=== PATIENT | female | born 1980 | race African-American/Black ===

== ENCOUNTER 2024-11-28 03:27 | Emergency (ER) | payer OTHER ==
[~2024-11-28] VITALS: Ht 154.9 cm; Wt 71.6 kg
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
[2024-11-28 05:02] VITALS: BP 132/84; PULSE 78; RESP 18; TEMP 98.6; O2SAT 99
== END 2024-11-28 05:03 | disposition home or self-care (01) ==
LOC: ER 03:29 → EEVIPCON 03:29 → ER 05:03
DX: Z00.00 Encounter for general adult medical examination without abnormal findings (principal)
CPT/HCPCS: 99283

== ENCOUNTER 2024-12-09 22:14 | Emergency (ER) | payer OTHER ==
[~2024-12-09] VITALS: Ht 152.4 cm; Wt 58.0 kg
[2024-12-09] MEDS ORDERED: SULF1TAB49 PO (23:37)
--- NOTE | 2024-12-09 23:37 | Physician Documentation ---
History of Present Illness ~ Chief Complaint: Wound Stated Complaint: LEG SORES Time Seen by MD: 23:28 HPI Patient presents secondary to wounds on her legs. She fell asleep quickly after being placed in a room and is not able to provide much history. When asked if she has had fevers or chills she shakes her head. When asked when the wound started she would not answer. Tetanus within 5 years?: No Medication Reconciliation Allergies: Coded Allergies: No Known Allergies (Unverified , 12/09/24) Scheduled Sulfamethoxazole/Trimethoprim (Bactrim Ds Tablet), 1 TAB PO Q12H Review of Systems ROS Review of systems negative except documented in HPI. Physical Exam Vital Signs: RN Vital Signs have been reviewed: Yes, Temperature: 97.6, Source: Temporal, Heart Rate: 99, Respiratory Rate: 15, BP: 112/56, Pulse Oximetry: 99, Weight: 58.000 Pulse Oximetry Reflects: adequate oxygenation Physical Exam General: Falling asleep easily. Difficult to arouse. No apparent distress. Respiratory: Lungs are clear to auscultation bilaterally. No respiratory distress. Extremities: Wounds to the bilateral legs. No surrounding erythema. Neurologic: Alert and oriented x4. Nonfocal Skin: Normal color. Warm and dry. Progress Results/Orders Results/Orders Completed Orders - MARIA ELENA LONG NP Sulfamethox/Trimetho. Ds Tab ( Ds (12/09/24 23:40) Medications Received in ER Medications (Trade) Dose Ordered Sig/Lizy Route PRN Reason Start Time Stop Time Status Last Admin Dose Admin ( DS tab) 1 tab ONCE ONCE PO 12/09/24 23:40 12/09/24 23:41 DC 12/09/24 23:45 1 TAB Vital Signs 12/09/24 12/09/24 22:17 23:49 Temp 97.6 98.6 Pulse 99 92 Resp 15 18 B/P (MAP) 112/56 115/50 Pulse Ox 99 99 Medical Decision Making Findings Presents with complaints of wounds to her legs. Unknown duration. She did not wish to participate and examined continued to sleep. She will be treated for cellulitis. Prescription for antibiotics was provided. At this time, no signs and symptoms of systemic infection. Differential Dx:Considerations: Include: Abscess, Cellulitis Departure Time of Disposition: 23:35 Disposition: 01 HOME / SELF CARE / HOMELESS Impression: Primary Impression: Wound cellulitis Condition: Stable Additional Instructions: Antibiotics to completion. Return for new or worsening symptoms. Referrals: NO PRIMARY CARE PROVIDER (PCP) Prescriptions Sulfamethoxazole/Trimethoprim (Bactrim Ds Tablet) 800 Mg-160 Mg Tablet 1 TAB PO Q12H for 7 Days, #14 TAB Prov: MARIA ELENA LONG NP 12/09/24 Education Educated: Patient Educated regarding: diagnosis, treatment, need for follow up Signature Scribe Signature: No scribe Attestation: The note accurately reflects work and decisions made by me.Maria Elena Long - CRISTIAN 12/10/24 00:04 This note was created with the assistance of voice recognition software whereby errors in grammar, syntax, and/or spelling may have occurred despite active proofreading efforts by the author. Please do not hesitate to contact the provider for clarification or for questions regarding the content of this document. MARIA ELENA LONG NP Dec 09, 2024 23:37
[2024-12-09] MEDS: sulfamethoxazole/trimethoprim DS (800/160mg) tablet PO ONE (23:45)
[2024-12-09 23:49] VITALS: BP 115/50; PULSE 92; RESP 18; TEMP 98.6; O2SAT 99
== END 2024-12-09 23:51 | disposition home or self-care (01) ==
LOC: ER 22:15
DX: L03.116 Cellulitis of left lower limb (principal); L03.115 Cellulitis of right lower limb; Z79.899 Other long term (current) drug therapy
CPT/HCPCS: 99283

== ENCOUNTER 2025-01-23 08:40 | Emergency (ER) | payer MEDICAID, OTHER ==
[~2025-01-23] VITALS: Ht 152.4 cm; Wt 69.6 kg
[2025-01-23 08:43] VITALS: TEMP 97.4
--- NOTE | 2025-01-23 09:20 | Physician Documentation ---
History of Present Illness Chief Complaint: Abdominal Pain Stated Complaint: ABD PAIN Time Seen by MD: 09:03 Mode of Arrival: Ambulatory HPI 44-year-old homeless female presents to the ED with chief complaints of abdominal pain for the last two days. She states that pain is mainly in the lower abdominal quadrants. No associated symptoms denies nausea, vomiting, diarrhea, constipation, fever, chills. No radiation of the pain. No aggravating or relieving factors. No bowel or bladder issues. Last menstrual cycle was last month. States there could be a possibility that she is as she states she fainted couple days ago. She is in a monogamous relationship, sexual history is active. Does not have any other concerns or complaints at this time. Timing/Duration: days History Of: no pertinent history Associated Symptoms: denies symptoms Medication Reconciliation Allergies: Coded Allergies: ibuprofen (Verified Adverse Reaction, Unknown, SWOLLEN TONGUE, 02/05/25) Scheduled Doxycycline Hyclate (Doxycycline Hyclate), 1 CAP PO BID, (Reported) Miscellaneous Medications Buprenorphine HCl/Naloxone HCl (Bupreno-Nalox 2-0.5 mg Sl Film), (Reported) Review of Systems ROS Reviewed in full. All negative except for pertinent positive HPI. Physical Exam Vital Signs: Temperature: 97.4, Source: Oral, Heart Rate: 83, Respiratory Rate: 12, BP: 135/84, Pulse Oximetry: 100, Weight: 69.600 Oxygen Flow Rate: 0 Physical Exam General: Awake and Alert, no acute distress. HEENT: Conjunctiva pink, Sclera clear, Mucus Membranes moist. Neck: Supple without masses and tenderness. Resp: Unlabored. Equal breath sounds bilaterally. Heart: Regular rhythm, normal S1 and S2, no rub, murmur or gallop. Abdomen: Soft and non tender no organomegaly. Normal bowel sounds x4 quadrant normoactive. No guarding or rigidity. Extremities: Normal ROM, no swelling, nontender. No cyanosis,clubbing or edema. [employer]: No gross motor or sensory abnormalities. Skin: Warm and Dry. Progress Progress Note PATIENT IS A REFUSING LABS. She is not cooperating with blood draws. Results/Orders Results/Orders Vital Signs 01/23/25 08:43 Temp 97.4 Pulse 83 Resp 12 B/P (MAP) 135/84 Pulse Ox 100 O2 Flow Rate 0 Medical Decision Making Additional information obtaine: other Findings Abdominal exam is normal. No tenderness noted. No guarding or rigidity. Lab done in January of 2025 were reviewed , and they are WNL except troponin done on 05 February was 60 . The CXR and Head CT done on 05 February were reviewed and unremarkable. Echocardiogram done Jan did not show wall motion abnormality. UDS on 06 February showed fentanyl, meth and opiate positive . Patient has substance abuse disorder as well as social problems and she is a frequent visitor of Emergency room. This morning , she was given food and allowed to sleep. Then the patient eloped. Differential Dx:Considerations: Appendicitis, Constipation, Gastritis/PUD, PID, Other Departure Disposition: LEFT AWOL/ELOPED Impression: Primary Impression: General medical exam Referrals: NO PRIMARY CARE PROVIDER (PCP) Signature Scribe Signature: x Attestation: PALOMA Levy, RES Jan 23, 2025 09:20 ANGELA MENDIETA MD Jan 23, 2025 09:24
[2025-01-23 10:45] VITALS: BP 134/79; PULSE 79; RESP 18; O2SAT 100
[2025-02-06] MEDS ORDERED: DOXY-224 PO (09:14)
[2025-02-06] MEDS ORDERED: BUPR1FIL54 (09:14)
== END 2025-01-23 10:40 | disposition left against medical advice (07) ==
LOC: ER 08:40
DX: R10.9 Unspecified abdominal pain (principal); Z59.00 Homelessness unspecified; Z88.6 Allergy status to analgesic agent
CPT/HCPCS: 85025; 99282